=== PATIENT | male | born 2000 | race Caucasian/White ===

== ENCOUNTER 2019-02-14 10:45 | Inpatient (IN) | payer OTHER ==
[~2019-02-14] VITALS: Ht 185.4 cm; Wt 87.9 kg
[2019-02-14 11:27] LABS: HEMATOCRIT 42.7 % (42.0-52.0); HEMOGLOBIN 14.5 g/dl (13.5-17.5); MEAN CORPUSCULAR HEMOGLOBIN 31.5 pg (27.0-33.0); MEAN CORPUSCULAR VOLUME 92.6 fl (80.0-96.0); PLATELET COUNT, AUTOMATED 267 10^3/uL (150-450); RED BLOOD COUNT 4.61 10^6/uL (4.30-6.10); WHITE BLOOD COUNT 5.4 10^3/uL (4.0-10.0)
[2019-02-14 11:51] LABS: AMPHETAMINES LEVEL URINE NEGATIVE (NEGATIVE); BARBITURATES URINE NEGATIVE (NEGATIVE); BENZODIAZEPINES URINE NEGATIVE (NEGATIVE); CANNABINOIDS URINE NEGATIVE (NEGATIVE); COCAINE METABOLITE URINE NEGATIVE (NEGATIVE); METHADONE URINE NEGATIVE (NEGATIVE); OPIATES URINE NEGATIVE (NEGATIVE); PHENCYCLIDINE URINE NEGATIVE (NEGATIVE)
[2019-02-14 12:07] LABS: ACETAMINOPHEN LEVEL < 2.0 UG/ML (10.0-30.0); ALBUMIN 4.4 GM/DL (3.2-5.2); ALT/SGPT 33 U/L (12-78); BILIRUBIN,DIRECT < 0.1 MG/DL (0.0-0.2); BILIRUBIN,TOTAL 0.2 MG/DL (0.2-1.0); BLOOD UREA NITROGEN 17 MG/DL (7-18); CALCIUM LEVEL 8.7 MG/DL (8.5-10.1); CARBON DIOXIDE LEVEL 26 MEQ/L (21-32); CHLORIDE LEVEL 107 MEQ/L (98-107); CREATININE FOR GFR 0.85 MG/DL (0.70-1.30); ETHYL ALCOHOL (ETHANOL) < 0.003 % (0.000-0.010); GLUCOSE, FASTING 93 MG/DL (70-100); POTASSIUM SERUM 4.4 MEQ/L (3.5-5.1); SALICYLATE LEVEL < 1.7 MG/DL (5.0-30.0); SODIUM LEVEL 140 MEQ/L (136-145); TOTAL PROTEIN 7.2 GM/DL (6.4-8.2)
[2019-02-14] MEDS ORDERED: ACETAMINOPHEN TAB 650MG DOSE (2X325MG) PO PRN (13:45)
[2019-02-14] MEDS ORDERED: MOM 30ML SUSPENSION UDC PO PRN (13:45)
[2019-02-14] MEDS ORDERED: MAALOX 30 ML SUSP *UDC PO PRN (13:45)
[2019-02-14 17:55] VITALS: BP 136/66
[2019-02-15 06:42] VITALS: BP 114/56
--- NOTE | 2019-02-15 09:37 | HPEPDOC ---
[facility] Medical History & Physical Date of Admission Feb 14, 2019 History and Physical PCP: [facility] ATTENDING: Dr. Nahun Mills HPI: 18yoM admitted to [facility] for depressive disorder, being medically examined today. No acute medical complaints today. Denies any fevers, chills, weakness, fatigue, AVALOS, CP, SOB, cough, palpitations, abdominal pain, N/V/D or changes in bowel or bladder habits. PMHx: depression PSHX: denies SOCHX: Resides in: [facility], from [place] Marital Status: single Kids: none Employment: Active duty Tobacco use: / ppd ETOH: denies Illicit Drugs: Denies IV Drug Use: Denies Tattoos done unprofessionally: Denies FAMHX: Mother: Alive, well Father: Alive, well Siblings: 1 sister Alive, well Children: none Unexpected deaths due to medical reasons: None. ROS: As noted in HPI, otherwise 11pt ROS of systems reviewed and unremarkable. PE: GEN: 18yoM, appears stated age. Well-nourished, well developed. No acute distress. Alert and oriented x 3. Pleasant, interactive. HEENT: Normocephalic, atraumatic. Pupils are equal, round, and reactive to light. Extraocular movements are intact. No nystagmus appreciated. Sclera are nonicteric. Conjunctiva without injection. Nose midline. Nasal turbinates without bogginess. EACs both patent BL. TMs both visualized and rodriguez with good cone of light, no bulging or erythema. No facial asymmetry. Moist mucous membranes. Dentition fair. Pharynx pink and moist, no cobblestoning. Neck supple, trachea midline. No lymphadenopathy or thyromegaly appreciated. CHEST: Regular rate and rhythm, +S1, +S2 LUNGS: Clear to auscultation bilaterally. No wheezes, rales, or rhonchi. Breathing appears symmetric and easy. Patient is speaking in full sentences. No accessory muscle use. ABD: Round, soft, non-tender, non-distended. +Bowel sounds throughout. No re bound or guarding. No costovertebral angle tenderness. EXT: Pulses 2+ bilaterally dorsalis pedis and radial. No lower extremity edema appreciated. SKIN: [place], dry, warm. Capillary refill <2sec. No rashes. NEURO: Alert and oriented x 3. Cranial nerves III-XII are intact. No focal deficits appreciated. EKG: pending A&P: 18yoM admitted to [facility] for depressive disorder 1. Psych. Plan per Psychiatry. Obtain baseline EKG to assure the safety of psychiatric medications as they can prolong the QT interval. 2. Nicotine dependence. Patch available. 3. Follow up with PCP on discharge. 4. Staff member Ruperto present throughout exam. Vital Signs Vital Signs Date Time Temp Pulse Resp B/P (MAP) Pulse Ox O2 Delivery O2 Flow Rate FiO2 02/15/19 06:42 98.4 63 16 114/56 (75) 02/14/19 10:51 100 Room Air Laboratory Data Labs 24H Laboratory Tests 2 02/14/19 11:12: Nucleated Red Blood Cells % (auto) 0.0, Anion Gap 7L, Calcium Level 8.7, Aspartate Amino Transf (AST/SGOT) 28, Alanine Aminotransferase (ALT/SGPT) 33, Alkaline Phosphatase 63, Total Bilirubin 0.2, Direct Bilirubin < 0.1, Total Protein 7.2, Albumin 4.4, Albumin/Globulin Ratio 1.57, Thyroid Stimulating Hormone (TSH) 0.790, Salicylates Level < 1.7L, Urine Amphetamines Screen NEGATIVE, Urine Benzodiazepines Screen NEGATIVE, Urine Opiates Screen NEGATIVE, Urine Methadone Screen NEGATIVE, Acetaminophen Level < 2.0L, Urine Barbiturates Screen NEGATIVE, Urine Phencyclidine Screen NEGATIVE, Urine Cocaine Metabolite Screen NEGATIVE, Urine Cannabinoids Screen NEGATIVE, Ethyl Alcohol Level < 0.003 CBC/BMP Laboratory Tests 02/14/19 11:12 Red Blood Count 4.61, Mean Corpuscular Volume 92.6, Mean Corpuscular Hemoglobin 31.5, Mean Corpuscular Hemoglobin Concent 34.0, Red Cell Distribution Width 13.0 Home Medications No Active Prescriptions or Reported Meds Allergies Coded Allergies: No Known Allergies (Unverified , 02/14/19) Nevaeh Trivedi Feb 15, 2019 09:37
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
[2019-02-15] MEDS: NICOTINE 21MG/24HR 1 EA TRANSDERMAL TD SCH (12:24)
[2019-02-15] MEDS ORDERED: SERTRALINE HCL 25 MG TABLET PO ONE (13:00)
[2019-02-15 18:00] VITALS: BP 137/69
--- NOTE | 2019-02-15 19:36 | ECGEPIP ---
Stationary ECG Study [facility] Test Date: 2019-02-15 Pat Name: RAMON HAYWOOD Department: Room: [place] [address] Gender: M Planned Giving Officer: THO : 2000 Requested By: Nevaeh Trivedi Order Number: [id number] Reading MD: Enrrique Lorenz Measurements Intervals Daniels Rate: 62 P: 60 AK: 146 QRS: 60 QRSD: 97 T: 55 QT: 387 QTc: 395 Interpretive Statements SINUS RHYTHM NO PRIOR Electronically Signed On 02-15-2019 19:35:55 EDT by Enrrique Lorenz
[2019-02-15] MEDS: traZODone 50 MG TAB PO PRN (20:30)
[2019-02-16 06:54] VITALS: BP 122/60
[2019-02-16] MEDS: NICOTINE 21MG/24HR 1 EA TRANSDERMAL TD SCH (08:36)
[2019-02-16] MEDS: SERTRALINE HCL 25 MG TABLET PO SCH (08:36)
--- NOTE | 2019-02-16 10:53 | MHIPNPDOC ---
[facility] Progress Note Progress Note DATE OF SERVICE: 02/16/19 HISTORY: Patient is a 18 -year-old , male, with no previous history who went to [facility] for appt with Dr. Frausto and endorsed agitation and SI so brought to [facility] ED for evaluation. Pt in the ED endorsed SI for the past 7-8yrs with varying intensity that has been getting worse over the past 2-3 wks with no specific plan although stated he had some plans. He also endorsed poor sleep and anxiety in the ED. 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 Also stated he has a poor relationship with his family in [place], has not made an close friends at yet, and his girlfriend in [place] is his only support in the ED. He denied HI, hallucinations, delusions in the ED. VITAL SIGNS: See below. NEW TEST RESULTS: See below. CURRENT MEDICATIONS: See below. MENTAL STATUS EXAMINATION: General Appearance: well groomed, appears stated age, hospital own clothing Build: average, tall Demeanor: average, less fidgety, withdrawn Activity: average, anxious Behavior: cooperative, less restless Speech: clear, normal volume, reg/rate,rhythm,volume Mood: depressed, anxious Affect: constricted, congruent, anxious Thought Process: logical/linear, depressed, intact Thought Content (Delusions): none reported, denies SI, HI, AVH Thought Content (Other): none reported, appropriate Thought Content (Aggressive): none reported Perception (Hallucinations): none reported Perception (Other): none reported Cognition (Impairment of): none reported Cognition(Intelligence Est.): average Oriented: Awake, Alert, Oriented times three Insight: fair Judgment: Fair Psychosis: Denies DIAGNOSES: Depression Unspecified r/o adjustment d/o with depression and anxiety anxiety unspecified ASSESSMENT:Pt seen and states he's "ugh." States he thinks his mood may be better or "as good as things can get." States he's socializing on the unit and attending groups which he does find helpful as he enjoys the type of socialization occurring [place]. Talked about ways he can improve his socialization at work and talk about things that are more interesting with his peers there and is hesitant and anxious about that . States he's tolerating his zoloft but has yet to feel it's effects. Continues to endorse anxiety/worrisome thoughts and encouraged to take vistaril as needed for anxiety. States he slept well with the use of trazodone. Denies SI/HI, hallucinations, delusions. feels safe here. MANAGEMENT PLAN: continue plan Medications: zoloft 25mg daily vistaril 25mg q6hr prn anxiety trazodone 50mg qhs prn insomnia TIME SPENT: 30 minutes. Vital Signs Vital Signs Date Time Temp Pulse Resp B/P (MAP) Pulse Ox O2 Delivery O2 Flow Rate FiO2 02/16/19 06:54 97.3 71 14 122/60 (80) 02/14/19 10:51 100 Room Air Current Medications Current Medications Acetaminophen (Tylenol Tab) 650 mg Q6HP PRN PO HEADACHE or DISCOMFORT; Start 02/14/19 at 13:45 Al Hydrox/Mg Hydrox/Simethicone (Mylanta) 30 ml Q4HP PRN PO HEARTBURN/INDIGESTION; Start 02/14/19 at 13:45 Home Med (Med Rec Complete!) ASDIRECTED XX ; Start 02/14/19 at 14:00; Stop 02/14/19 at 14:00; Status DC Hydroxyzine HCl (Atarax) 25 mg Q6HP PRN PO ANXIETY; Start 02/15/19 at 12:15 Magnesium Hydroxide (Milk Of Magnesia) 30 ml DAILYPRN PRN PO CONSTIPATION; Start 02/14/19 at 13:45 Nicotine (Nicoderm Cq 21mg) 1 patch DAILY TD Last administered on 02/16/19at 08:36; Start 02/15/19 at 09:00 Sertraline HCl (Zoloft) 25 mg DAILY PO Last administered on 02/16/19at 08:36; Start 02/16/19 at 09:00 Trazodone HCl (Desyrel) 50 mg QHSP PRN PO INSOMNIA Last administered on 02/15/19at 20:30; Start 02/14/19 at 13:45 Allergies Coded Allergies: No Known Allergies (Unverified , 02/14/19) EPHRAIM MANCUSO DO Feb 16, 2019 9:52 am
[2019-02-16] MEDS: hydrOXYzine 25 MG TAB PO PRN (11:53)
[2019-02-16 18:00] VITALS: BP 128/58
[2019-02-16] MEDS: traZODone 50 MG TAB PO PRN (21:43)
[2019-02-17 06:45] VITALS: BP 121/56
[2019-02-17] MEDS: SERTRALINE HCL 25 MG TABLET PO SCH (08:09)
[2019-02-17] MEDS: NICOTINE 21MG/24HR 1 EA TRANSDERMAL TD SCH (08:10)
--- NOTE | 2019-02-17 12:56 | MHIPNPDOC ---
[facility] Progress Note Progress Note DATE OF SERVICE: 02/17/19 HISTORY: See HPI. Interval: Says his mood is "good" today. That groups are not helpeful, but he has been going to them. Reports adequate sleep and appetite are good. Denies SI/HI/AVH/alina. Reports some anxiety/irritable and that hydroxyzine helped him yesterday. Told him to take hydroxyzine if feeling anxious. Educated patient on antidepressant taking several weeks in order to have the reduced anxiety, change in mood. VITAL SIGNS: See below. NEW TEST RESULTS: See below. CURRENT MEDICATIONS: See below. MENTAL STATUS EXAMINATION: General Appearance: well groomed, appears stated age, dressed in hospital clothing Build: average, tall Demeanor: average, less fidgety, withdrawn Activity: average, anxious Behavior: cooperative, less restless Speech: clear, normal volume, reg/rate,rhythm,volume Mood: depressed, anxious Affect: constricted, congruent, anxious Thought Process: logical/linear, depressed, intact Thought Content (Delusions): none reported, denies SI, HI, AVH Thought Content (Other): none reported, appropriate Thought Content (Aggressive): none reported Perception (Hallucinations): none reported Perception (Other): none reported Cognition (Impairment of): none reported Cognition(Intelligence Est.): average Oriented: Awake, Alert, Oriented times three Insight: fair Judgment: good Psychosis: Denies DIAGNOSES: Depression Unspecified r/o adjustment d/o with depression and anxiety anxiety unspecified ASSESSMENT: Patient's mood continues to improve. Reports anxiety and agrees that 25 mg PO PRN atarax helps control symptoms of anxiety. Denies SI/HI/AVH/alina. MANAGEMENT PLAN: continue plan including medications: zoloft 25mg daily vistaril 25mg q6hr prn anxiety trazodone 50mg qhs prn insomnia TIME SPENT: 10 minutes. Vital Signs Vital Signs Date Time Temp Pulse Resp B/P (MAP) Pulse Ox O2 Delivery O2 Flow Rate FiO2 02/17/19 06:45 98.4 66 14 121/56 (77) 02/14/19 10:51 100 Room Air Current Medications Current Medications Acetaminophen (Tylenol Tab) 650 mg Q6HP PRN PO HEADACHE or DISCOMFORT; Start 02/14/19 at 13:45 Al Hydrox/Mg Hydrox/Simethicone (Mylanta) 30 ml Q4HP PRN PO HEARTBURN/INDIGESTION; Start 02/14/19 at 13:45 Home Med (Med Rec Complete!) ASDIRECTED XX ; Start 02/14/19 at 14:00; Stop 02/14/19 at 14:00; Status DC Hydroxyzine HCl (Atarax) 25 mg Q6HP PRN PO ANXIETY Last administered on 02/16/19at 11:53; Start 02/15/19 at 12:15 Magnesium Hydroxide (Milk Of Magnesia) 30 ml DAILYPRN PRN PO CONSTIPATION; Start 02/14/19 at 13:45 Nicotine (Nicoderm Cq 21mg) 1 patch DAILY TD Last administered on 02/17/19at 08:10; Start 02/15/19 at 09:00 Sertraline HCl (Zoloft) 25 mg DAILY PO Last administered on 02/17/19at 08:09; Start 02/16/19 at 09:00 Trazodone HCl (Desyrel) 50 mg QHSP PRN PO INSOMNIA Last administered on 02/16/19at 21:43; Start 02/14/19 at 13:45 Allergies Coded Allergies: No Known Allergies (Unverified , 02/14/19) RHIANNON GARCIA PGY-1 Feb 17, 2019 12:56
[2019-02-17] MEDS: hydrOXYzine 25 MG TAB PO PRN (13:19)
[2019-02-17 18:40] VITALS: BP 100/50
[2019-02-17] MEDS: traZODone 50 MG TAB PO PRN (21:01)
[2019-02-18 06:33] VITALS: BP 105/53
[2019-02-18] MEDS: NICOTINE 21MG/24HR 1 EA TRANSDERMAL TD SCH (08:22)
[2019-02-18] MEDS: SERTRALINE HCL 25 MG TABLET PO SCH (08:22)
--- NOTE | 2019-02-18 09:37 | MHIPNPDOC ---
[facility] Progress Note Progress Note DATE OF SERVICE: 02/18/19 HISTORY: See HPI. Interval: Denies SI/HI/AVH/alina. Reports that he feels "good". Denies depressed mood or suicidal ideations. Says the atarax is not fully controlling periods of anxiety and agrees to have the medication increased to 50 mg Q6H PRN. Says the trazodone helped get to sleep, but he did not stay asleep, agreed to have dose increased to 75 mg PO QHS. VITAL SIGNS: See below. NEW TEST RESULTS: See below. CURRENT MEDICATIONS: See below. MENTAL STATUS EXAMINATION: General Appearance: well groomed, appears stated age, dressed in hospital clothing Build: average, tall Demeanor: calm Activity: average Behavior: cooperative, less restless Speech: clear, normal volume, reg/rate,rhythm,volume Mood: "good" Affect: euthymic Thought Process: logical/linear, intact Thought Content (Delusions): none reported, denies SI, HI, AVH Thought Content (Other): none reported, appropriate Thought Content (Aggressive): none reported Perception (Hallucinations): none reported Perception (Other): none reported Cognition (Impairment of): none reported Cognition(Intelligence Est.): average Oriented: Awake, Alert, Oriented times three Insight: fair Judgment: improving Psychosis: Denies DIAGNOSES: Depression Unspecified r/o adjustment d/o with depression and anxiety anxiety unspecified ASSESSMENT: Patient's reports good mood, with periods of anxiety. Patient asks for increases in atarax and trazodone. Denies common or rare side effects of medications. Was seen in social milieu, appetite is good, has been attending groups. Denies SI/HI/AVH/alina. MANAGEMENT PLAN: continue plan including medications: continue zoloft 25mg daily atrax increased from 25mg to 50 mg q6hr prn anxiety increased trazodone from 50 mg to 75 mg qhs prn insomnia TIME SPENT: 10 minutes. Vital Signs Vital Signs Date Time Temp Pulse Resp B/P (MAP) Pulse Ox O2 Delivery O2 Flow Rate FiO2 02/18/19 06:33 98.3 68 12 105/53 (70) 02/14/19 10:51 100 Room Air Current Medications Current Medications Acetaminophen (Tylenol Tab) 650 mg Q6HP PRN PO HEADACHE or DISCOMFORT; Start 02/14/19 at 13:45 Al Hydrox/Mg Hydrox/Simethicone (Mylanta) 30 ml Q4HP PRN PO HEARTBURN/INDIGESTION; Start 02/14/19 at 13:45 Home Med (Med Rec Complete!) ASDIRECTED XX ; Start 02/14/19 at 14:00; Stop 02/14/19 at 14:00; Status DC Hydroxyzine HCl (Atarax) 25 mg Q6HP PRN PO ANXIETY Last administered on 02/17/19at 13:19; Start 02/15/19 at 12:15 Magnesium Hydroxide (Milk Of Magnesia) 30 ml DAILYPRN PRN PO CONSTIPATION; Start 02/14/19 at 13:45 Nicotine (Nicoderm Cq 21mg) 1 patch DAILY TD Last administered on 02/18/19at 08:22; Start 02/15/19 at 09:00 Sertraline HCl (Zoloft) 25 mg DAILY PO Last administered on 02/18/19at 08:22; Start 02/16/19 at 09:00 Trazodone HCl (Desyrel) 50 mg QHSP PRN PO INSOMNIA Last administered on 02/17/19at 21:01; Start 02/14/19 at 13:45 Allergies Coded Allergies: No Known Allergies (Unverified , 02/14/19) RHIANNON GARCIA PGY-1 Feb 18, 2019 09:37
[2019-02-18] MEDS ORDERED: traZODone 50 MG TAB PO PRN (09:45)
[2019-02-18] MEDS: hydrOXYzine 25 MG TAB PO PRN (12:06)
[2019-02-18 18:30] VITALS: BP 119/55
[2019-02-19 06:43] VITALS: BP 111/57
[2019-02-19] MEDS: SERTRALINE HCL 25 MG TABLET PO SCH (08:17)
[2019-02-19] MEDS: hydrOXYzine 25 MG TAB PO PRN (08:18)
[2019-02-19] MEDS: NICOTINE 21MG/24HR 1 EA TRANSDERMAL TD SCH (08:19)
--- NOTE | 2019-02-19 09:39 | MHIPNPDOC ---
[facility] Progress Note Progress Note DATE OF SERVICE: 02/19/19 HISTORY: Patient is a 18 -year-old , male, with no previous history who went to [facility] for appt with Dr. Frausto and endorsed agitation and SI so brought to [facility] ED for evaluation. Pt in the ED endorsed SI for the past 7-8yrs with varying intensity that has been getting worse over the past 2-3 wks with no specific plan although stated he had some plans. He also endorsed poor sleep and anxiety in the ED. 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 Also stated he has a poor relationship with his family in [place], has not made an close friends at yet, and his girlfriend in [place] is his only support in the ED. He denied HI, hallucinations, delusions in the ED. VITAL SIGNS: See below. NEW TEST RESULTS: See below. CURRENT MEDICATIONS: See below. MENTAL STATUS EXAMINATION: General Appearance: well groomed, appears stated age, hospital own clothing Build: average, tall Demeanor: average, anxious, less withdrawn Activity: average, anxious Behavior: cooperative, less restless Speech: clear, normal volume, reg/rate,rhythm,volume Mood: depressed, anxious Affect: constricted, congruent, anxious Thought Process: logical/linear, depressed, intact Thought Content (Delusions): none reported, denies SI, HI, AVH Thought Content (Other): none reported, appropriate Thought Content (Aggressive): none reported Perception (Hallucinations): none reported Perception (Other): none reported Cognition (Impairment of): none reported Cognition(Intelligence Est.): average Oriented: Awake, Alert, Oriented times three Insight: fair Judgment: Fair Psychosis: Denies DIAGNOSES: Depression Unspecified r/o adjustment d/o with depression and anxiety anxiety unspecified ASSESSMENT:Pt seen and states he's still having a lot of anxiety and increased vistaril not beneficial. Agreeable to trying inderal for anxiety, risks/benefits discussed. States he's tolerating his zoloft but doesn't really notice much change in mood or anxiety yet with it and is agreeable to increase. States increased trazodone is beneficial for sleep. States he's socializing on the unit and attending groups which he does find helpful as he enjoys the type of socialization occurring [place]. Denies SI/HI, hallucinations, delusions. feels safe here. MANAGEMENT PLAN: continue plan Medications: zoloft 50mg daily inderal 10mg tid vistaril 50mg q6hr prn anxiety trazodone 100mg qhs prn insomnia TIME SPENT: 30 minutes. Vital Signs Vital Signs Date Time Temp Pulse Resp B/P (MAP) Pulse Ox O2 Delivery O2 Flow Rate FiO2 02/19/19 06:43 97.2 77 12 111/57 (75) 02/14/19 10:51 100 Room Air Current Medications Current Medications Acetaminophen (Tylenol Tab) 650 mg Q6HP PRN PO HEADACHE or DISCOMFORT; Start 02/14/19 at 13:45 Al Hydrox/Mg Hydrox/Simethicone (Mylanta) 30 ml Q4HP PRN PO HEARTBURN/INDIGESTION; Start 02/14/19 at 13:45 Home Med (Med Rec Complete!) ASDIRECTED XX ; Start 02/14/19 at 14:00; Stop 02/14/19 at 14:00; Status DC Hydroxyzine HCl (Atarax) 25 mg Q6HP PRN PO ANXIETY Last administered on 02/17/19at 13:19; Start 02/15/19 at 12:15; Stop 02/18/19 at 09:38; Status DC Hydroxyzine HCl (Atarax) 50 mg Q6HP PRN PO ANXIETY Last administered on 02/19at 08:18; Start 02/18/19 at 09:45 Magnesium Hydroxide (Milk Of Magnesia) 30 ml DAILYPRN PRN PO CONSTIPATION; Start 02/14/19 at 13:45 Nicotine (Nicoderm Cq 21mg) 1 patch DAILY TD Last administered on 02/19/19at 08:19; Start 02/15/19 at 09:00 Sertraline HCl (Zoloft) 25 mg DAILY PO Last administered on 02/19/19at 08:17; Start 02/16/19 at 09:00 Trazodone HCl (Desyrel) 50 mg QHSP PRN PO INSOMNIA Last administered on 02/17/19at 21:01; Start 02/14/19 at 13:45; Stop 02/18/19 at 09:38; Status DC Trazodone HCl (Desyrel) 75 mg QHSP PRN PO INSOMNIA Last administered on 02/18/19at 20:36; Start 02/18/19 at 09:45 Allergies Coded Allergies: No Known Allergies (Unverified , 02/14/19) EPHRAIM MANCUSO DO Feb 19, 2019 9:39 am
[2019-02-19] MEDS ORDERED: SERTRALINE HCL 25 MG TABLET PO ONE (09:45)
[2019-02-19] MEDS: PROPRANOLOL 10 MG TAB PO SCH ×3 (10:17→20:19)
[2019-02-19 18:00] VITALS: BP 126/65
[2019-02-20 06:40] VITALS: BP 103/48
[2019-02-20 08:12] VITALS: BP 126/70
[2019-02-20] MEDS: PROPRANOLOL 10 MG TAB PO SCH (08:12)
[2019-02-20] MEDS: NICOTINE 21MG/24HR 1 EA TRANSDERMAL TD SCH (08:12)
[2019-02-20] MEDS ORDERED: SERTRALINE HCL 50 MG TAB PO SCH (09:00)
--- NOTE | 2019-02-20 09:19 | MHDSPDOC ---
[facility] Discharge Summary Discharge Summary DATE OF ADMISSION: Feb 14, 2019 at 1:42 pm DATE OF DISCHARGE: February 20, 2019 DISCHARGE DIAGNOSES: Depression Unspecified r/o adjustment d/o with depression and anxiety anxiety unspecified REASON FOR ADMISSION: Patient is a 18 -year-old , male, with no previous history who went to [facility] for appt with Dr. Frausto and endorsed agitation and SI so brought to [facility] ED for evaluation. Pt in the ED endorsed SI for the past 7-8yrs with varying intensity that has been getting worse over the past 2-3 wks with no specific plan although stated he had some plans. He also endorsed poor sleep and anxiety in the ED. 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 Also stated he has a poor relationship with his family in [place], has not made an close friends at yet, and his girlfriend in [place] is his only support in the ED. He denied HI, hallucinations, delusions in the ED. CONSULTANTS INVOLVED: none TREATMENT AND PROGRESS ON THE UNIT : Pt was admitted to [facility], seen for psychiatric assessment and started on zoloft 50mg daily for mood and inderal 10mg tid for anxiety/irritability. He was provided vistaril 50mg q6hr prn anxiety and trazodone 100mg qhs prn insomnia. Pt found his medications beneficial and tolerated them well. He attended groups daily during his stay. His symptoms improved with treatment. On day of discharge he denied depression, anxiety, insomnia, SI/HI, hallucinations, delusions. He was discharged home after Samira meeting with follow-up at [facility]. He felt safe for discharge. DISCHARGE ASSESSMENT: Pt seen and states his mood is good and his anxiety is much better. States he's no longer feels irritable and that the inderal he started yesterday is beneficial and he's tolerating it well. States he's tolerating his zoloft and is finding increase more beneficial to his mood and anxiety. States increased trazodone is beneficial for sleep. States he's socializing on the unit and attending groups which he does find helpful as he enjoys them. Denies depression, anxiety, insomnia, SI/HI, hallucinations, delusions. feels safe to be discharged home with his Samira today. MENTAL STATUS EXAMINATION ON DISCHARGE: General Appearance: well groomed, appears stated age, hospital own clothing Build: average, tall Demeanor: average Activity: average, anxious Behavior: cooperative Speech: clear, normal volume, reg/rate,rhythm,volume Mood: euthymic, full Affect: euthymic full Thought Process: logical/linear, intact Thought Content (Delusions): none reported, denies SI, HI, AVH Thought Content (Other): none reported, appropriate Thought Content (Aggressive): none reported Perception (Hallucinations): none reported Perception (Other): none reported Cognition (Impairment of): none reported Cognition(Intelligence Est.): average Oriented: Awake, Alert, Oriented times three Insight: good Judgment: good Psychosis: Denies MEDICATIONS ON DISCHARGE: zoloft 50mg daily inderal 10mg tid vistaril 50mg q6hr prn anxiety trazodone 100mg qhs prn insomnia PLAN/FOLLOWUP ARRANGEMENTS: d/c home with Samira with follow-up at [facility] The amount of time spent in the coordination of care for this patient was approximately 30 minutes. Vital Signs/I&Os Vital Signs Date Time Temp Pulse Resp B/P (MAP) Pulse Ox O2 Delivery O2 Flow Rate FiO2 02/20/19 08:12 77 126/70 02/20/19 06:40 97.7 12 02/14/19 10:51 100 Room Air Medications No Active Prescriptions or Reported Meds Allergies Coded Allergies: No Known Allergies (Unverified , 02/14/19) EPHRAIM MANCUSO DO Feb 20, 2019 9:19 am
[2019-02-20] MEDS ORDERED: TRAZO50TA PO (10:27)
[2019-02-20] MEDS ORDERED: PROP10TAB PO (10:27)
[2019-02-20] MEDS ORDERED: HYDR-3363 PO (10:27)
[2019-02-20] MEDS ORDERED: SERT50TA PO (10:27)
== END 2019-02-20 10:45 | disposition home or self-care (01) | DRG 881 ==
LOC: M ED 10:45 → M ED INP 13:42 → M PSY 15:40
PROVIDERS: ADMIT Psychiatry & Neurology Psychiatry; ATTEND Psychiatry & Neurology Psychiatry
DX: F32.9 Major depressive disorder, single episode, unspecified (principal); R45.851 Suicidal ideations; F43.23 Adjustment disorder with mixed anxiety and depressed mood; F17.200 Nicotine dependence, unspecified, uncomplicated